=== PATIENT | female | born 1995 | race Hispanic/Latino ===

== ENCOUNTER 2019-04-23 20:40 | Emergency (ER) | payer SELFPAY ==
[2019-04-23] MEDS ORDERED: KETOROLAC TROMETHAMINE 60 MG/2 ML VIAL ONE (21:24)
[2019-04-23] MEDS ORDERED: ORPHENADRINE CITRATE 30 MG/ML ML ONE (21:24)
[2019-04-23] MEDS ORDERED: LIDOCAINE 5% TOPICAL PATCH TP ONE (21:24)
== END 2019-04-23 21:58 | disposition home or self-care (01) ==
LOC: EDH 20:40
DX: G44.209 Tension-type headache, unspecified, not intractable (principal); M62.838 Other muscle spasm; Z90.49 Acquired absence of other specified parts of digestive tract
CPT/HCPCS: 96372 ×2; 99284; J1885; J2360